=== PATIENT | female | born 1985 | race Caucasian/White ===

== ENCOUNTER 2016-09-22 20:24 | Emergency (ER) | payer SELFPAY ==
--- NOTE | 2016-09-22 23:04 | C.PDOC ---
History Of Present Illness <Godwin Huynh - Last Filed: 09/23/16 01:45> <Raul Smith - Last Filed: 09/23/16 13:40> 30 year old female, P:2, 1 ectopic and currently , presents to the ED with complaints of nausea and vomiting for the past week. Patient states she had 3 episodes of vomiting today and notes she has had intermittent lower suprapubic discomfort for the past 2 days. Denies fever, chills, diarrhea, vaginal bleeding, or any other complaints at this time. (Raul Smith) <Godwin Huynh - Last Filed: 09/23/16 01:45> History Per: Patient History/Exam Limitations: no limitations Onset/Duration Of Symptoms: Days Current Symptoms Are (Timing): Still Present Severity: Mild Associated Symptoms: Nausea, Vomiting. denies: Fever, Chills Abnormal Vaginal Bleeding: No Last Menstral Period: 08/14/2016 <Raul Smith - Last Filed: 09/23/16 13:40> Time Seen by Provider: 09/22/16 23:01 Chief Complaint (Nursing): Abdominal Pain Past Medical History Reviewed: Historical Data, Nursing Documentation, Vital Signs - Medical History PMH: No Chronic Diseases Family History: States: Unknown Family Hx - Social History Hx Alcohol Use: No Hx Substance Use: No - Immunization History Hx Tetanus Toxoid Vaccination: Yes Hx Influenza Vaccination: No Hx Pneumococcal Vaccination: No <Raul Smith - Last Filed: 09/23/16 13:40> Vital Signs: Last Vital Signs Temp 98.5 F 09/23/16 01:21 Pulse 71 09/23/16 01:21 Resp 18 09/23/16 01:21 BP 83/57 L 09/23/16 01:21 Pulse Ox 99 09/23/16 01:21 Review Of Systems Except As Marked, All Systems Reviewed And Found Negative. Constitutional: Negative for: Fever, Chills Gastrointestinal: Positive for: Nausea, Vomiting, Abdominal Pain (+Suprapubic discomfort). Negative for: Diarrhea, Constipation Genitourinary: Negative for: Dysuria, Frequency, Vaginal Bleeding Musculoskeletal: Negative for: Back Pain <Raul Smith - Last Filed: 09/23/16 13:40> Physical Exam - Physical Exam Appears: Non-toxic, No Acute Distress Skin: Warm, Dry Head: Atraumatic, Normacephalic Eye(s): bilateral: Normal Inspection Oral Mucosa: Moist Chest: Symmetrical Cardiovascular: Rhythm Regular Respiratory: Normal Breath Sounds, No Accessory Muscle Use, No Rales, No Rhonchi , No Wheezing Gastrointestinal/Abdominal: Soft, Tenderness (+Suprapubic tenderness), No Distention, No Guarding, No Rebound Extremity: Normal ROM, No Deformity Neurological/Psych: Oriented x3, Normal Speech, Normal Cognition <Raul Smith - Last Filed: 09/23/16 13:40> ED Course And Treatment - Laboratory Results Result Diagrams: 09/23/16 00:26 09/23/16 00:26 <Godwin Huynh - Last Filed: 09/23/16 01:45> - Laboratory Results Result Diagrams: 09/23/16 00:26 09/23/16 00:26 O2 Sat by Pulse Oximetry: 100 (Room air) Pulse Ox Interpretation: Normal <Raul Smith - Last Filed: 09/23/16 13:40> Medical Decision Making <Godwin Huynh - Last Filed: 09/23/16 01:45> <Raul Smith - Last Filed: 09/23/16 13:40> Medical Decision Making: pt endorsed to me pending us. iup confirmed. abd soft. no ketones, pt states feels well for d/c. stable for d/c. IMPRESSION: Living intrauterine gestation at 6 weeks 3 days. No acute findin (Godwin Huynh) Plan: -Blood work -Urinalysis -Tylenol -Zofran -reassess Progress: (Raul Smith) Disposition - Disposition Disposition Time: 01:35 <Godwin Huynh - Last Filed: 09/23/16 01:45> <Raul Smith - Last Filed: 09/23/16 13:40> - Disposition Referrals: Mainor Rashid [Staff Provider] - Kenyon Talbert MD [Staff Provider] - Disposition: HOME/ ROUTINE Condition: STABLE Additional Instructions: please follow up with obgyn. return to er with worsening symptoms or concerns. Prescriptions: Ondansetron ODT [Zofran ODT] 4 mg PO Q8 PRN #10 odt PRN Reason: Nausea/Vomiting Instructions: Threatened Miscarriage (ED), Hyperemesis Gravidarum (ED) Print Language: CITIZEN OF [place] - Clinical Impression Clinical Impression: Threatened <Godwin Huynh - Last Filed: 09/23/16 01:45> - Scribe Statement The provider has reviewed the documentation as recorded by the Scribe <Raul Smith - Last Filed: 09/23/16 13:40> - Scribe Statement Ubaldo Garber. (Raul Smith) Provider Attestation: All medical record entries made by the Scribe were at my direction and personally dictated by me. I have reviewed the chart and agree that the record accurately reflects my personal performance of the history, physical exam, medical decision making, and the department course for this patient. I have also personally directed, reviewed, and agree with the discharge instructions and disposition. (Raul Smith) Physician Patient Turnover Patient Signed Over To: Godwin Huynh Handoff Comments: pending US <Raul Smith - Last Filed: 09/23/16 13:40>
[2016-09-22 23:24] LABS: RBC URINE 2 /hpf (0-3); URINE BACTERIA RARE (<OCC); URINE BILIRUBIN NEGATIVE (NEGATIVE); URINE BLOOD NEGATIVE (NEGATIVE); URINE COLOR Yellow (YELLOW); URINE GLUCOSE (UA) NORMAL (Normal); URINE KETONE NEGATIVE (NEGATIVE); URINE LEUKOCYTE ESTERASE NEG Leu/uL (Negative); URINE PROTEIN NEGATIVE (NEGATIVE); URINE UROBILINOGEN NORMAL mg/dL (0.2-1.0); WBC URINE 2 /hpf (0-5)
[2016-09-23 00:40] LABS: BASO % 0.2 % (0.0-2.0); EOS # 0.1 K/uL (0.0-0.7); EOS % 0.8 % (0.0-4.0); HEMATOCRIT 40.3 % (34.0-47.0); LYMPH # 2.9 K/uL (1.0-4.3); LYMPH % 26.5 % (20.0-40.0); MEAN CELL VOLUME 88.2 fL (81.0-99.0); MEAN CORPUSCULAR HEMOGLOBIN 29.2 pg (27.0-31.0); MEAN CORPUSCULAR HGB CONC 33.1 g/dL (33.0-37.0); MONO # 0.7 K/uL (0.0-0.8); NRBC % 0.1 % (0.0-2.0); RED CELL DISTRIBUTION WIDTH 13.6 % (11.5-14.5); WHITE BLOOD COUNT 10.9 K/uL (4.8-10.8)
[2016-09-23 00:49] LABS: CHLORIDE 98 mmol/L (98-107); POTASSIUM 3.3 mmol/L (3.6-5.2); SODIUM 136 mmol/L (132-148)
[2016-09-23 00:51] LABS: BILIRUBIN,TOTAL 0.4 mg/dL (0.2-1.3); GFR AFRICAN-AMERICAN > 60
[2016-09-23 00:52] LABS: ALB/GLOB RATIO 1.2 (1.0-2.1); ALKALINE PHOSPHATASE 51 U/L (38-126); ALT/SGPT 23 U/L (9-52); AST/SGOT 18 U/L (14-36); BLOOD UREA NITROGEN 6 mg/dL (7-17); CALCIUM 8.3 mg/dl (8.6-10.4); CARBON DIOXIDE 23 mmol/L (22-30); GLUCOSE,RANDOM 83 mg/dL (65-105); TOTAL PROTEIN 7.3 g/dL (6.3-8.3)
[2016-09-23 01:21] VITALS: BP 83/57; PULSE 71; RESP 18; TEMP 98.5
--- NOTE | 2016-09-23 09:25 | US ---
PROCEDURE: OB Pelvic Ultrasound HISTORY: rule out ectopic COMPARISON: None available. TECHNIQUE: Transabdominal and transvaginal pelvic ultrasound was performed. FINDINGS: UTERUS: Gestational sac: Single intrauterine gestation. Heart rate: 135 bpm. age (Ultrasound estimated): 6 weeks and 3 days Gema-gestational hemorrhage: None. Date of delivery (Ultrasound estimated) : 05/16/2017 Uterus measures 4.3 x 6.1 x 7.4 cm. Anteverted, normal in size and appearance. No fibroid or other mass lesion seen. CERVIX: Long and closed. No cervical abnormality seen. RIGHT OVARY: Measures 0.0 x 1.9 x 2.3 cm. No mass lesion. Normal flow. LEFT OVARY: Measures 2.6 x 1.4 x 2.0 cm. No solid mass. Normal flow. FREE FLUID: There is small amount of free fluid in the cul de sac. OTHER FINDINGS: None. IMPRESSION: Single live intrauterine gestation with mean gestational age of 6 weeks and 2 days. The ultrasound dates correspond with the clinical dates. Small amount of free fluid in the cul de sac is of uncertain etiology and clinical significance. A preliminary report was provided by [id number] films.
[2016-09-23 13:40] VITALS: O2SAT 100
== END 2016-09-23 01:49 | disposition home or self-care (01) ==
LOC: C.ER 20:24
DX: O20.0 Threatened abortion (principal); Z3A.01 Less than 8 weeks gestation of pregnancy